=== PATIENT | female | born 1990 | race Caucasian/White ===

== ENCOUNTER 2018-04-03 13:51 | Emergency (ER) | payer MEDICAID ==
[~2018-04-03] VITALS: Ht 154.9 cm; Wt 49.0 kg
[2018-04-03] MEDS ORDERED: VISCOUS LIDOCAINE 2% 15 ML UDC MM STA (16:01)
[2018-04-03 16:14] VITALS: BP 124/52
[2018-04-03] MEDS ORDERED: IBUPROFEN 600MG TABLET PO ONE (16:15)
== END 2018-04-03 18:14 | disposition home or self-care (01) ==
LOC: ER 13:51
DX: J02.0 Streptococcal pharyngitis (principal); B95.5 Unspecified streptococcus as the cause of diseases classified elsewhere; R03.0 Elevated blood-pressure reading, without diagnosis of hypertension; Z88.0 Allergy status to penicillin; Z88.8 Allergy status to other drugs, medicaments and biological substances; Z88.2 Allergy status to sulfonamides
CPT/HCPCS: 99283